=== PATIENT | female | born 2000 | race Asian ===

== ENCOUNTER 2021-07-25 14:13 | Emergency (ER) | payer BC, OTHER ==
[~2021-07-25] VITALS: Ht 147.3 cm; Wt 48.8 kg
--- NOTE | 2021-07-25 15:46 | PHYS DOC ---
Past Medical History Past Medical History: No Pertinent History ([facility],ELIZABETH Love SENIOR PAYROLL SPECIALIST) Past Surgical History: No Surgical History [facility] SEN[facility] PAYROLL SPECIAL[facility]) Smoking Status: Current Some Day Smoker Alcohol Use: Occasionally Drug Use: None ([facility] SENIOR PAYROLL SPECIALIST) General Adult EDM: Chief Complaint: FEVER HPI: HPI: Patient is a 20 year old female who presents with 1 day of sore throat, headache, fever, body aches. She states she was around her cousin he was ill but tested negative for Covid. She is a history of smoking but takes no other meds. She is not vaccinated for Covid. She last took Tylenol at 10:00 this morning. Denies urinary symptoms, cough, shortness of air, nasal congestion, loss of taste or smell, dizziness, chest pain, abdominal pain, nausea, vomiting, diarrhea. (ELIZABETH COBOS SENIOR PAYROLL SPECIALIST) Review of Systems: Review of Systems: Constitutional: + fever or +chills. [] Eyes: Denies change in visual acuity. [] HENT: Denies nasal congestion or +sore throat. [] Respiratory: Denies cough or shortness of breath. [] Cardiovascular: Denies chest pain or edema. [] GI: Denies abdominal pain, nausea, vomiting, bloody stools or diarrhea. [] : Denies dysuria. [] Musculoskeletal: Denies back pain or joint pain. + Generalized body aches [] Integument: Denies rash. [] Neurologic: + headache, denies focal weakness or sensory changes. [] Endocrine: Denies polyuria or polydipsia. [] Lymphatic: Denies swollen glands. [] Psychiatric: Denies depression or anxiety. [] ([facility],ELIZABETH M SENIOR PAYROLL SPECIALIST) Heart Score: C/O Chest Pain: No ([facility] SENIOR PAYROLL SPECIALIST) Allergies: Allergies: Allergies Coded Allergies Type Severity Reaction Last Updated Verified No Known Drug Allergies 07/13/14 No ([facility] SENIOR PAYROLL SPECIALIST) Physical Exam: PE: Constitutional: Well developed, well nourished, no acute distress, non-toxic appearance. Febrile [] HENT: Normocephalic, atraumatic, bilateral external ears normal, oropharynx moist, no oral exudates, nose normal. [] Eyes: PERRLA, EOMI, conjunctiva normal, no discharge. [] Neck: Normal range of motion, no tenderness, supple, no stridor. [] Cardiovascular:Heart rate regular tachycardia rhythm, no murmur [] Lungs & Thorax: Bilateral breath sounds clear to auscultation [] Abdomen: Bowel sounds normal, soft, no tenderness, no masses, no pulsatile masses. [] Skin: Warm, dry, no erythema, no rash. [] Back: No tenderness, no CVA tenderness. [] Extremities: No tenderness, no cyanosis, no clubbing, ROM intact, no edema. [] Neurologic: Alert and oriented X 3, normal motor function, normal sensory function, no focal deficits noted. [] Psychologic: Affect normal, judgement normal, mood normal. [] (ELIZABETH COBOS APRN) Current Patient Data: Vital Signs: Vital Signs Date Time Temp Pulse Resp B/P (MAP) Pulse Ox O2 Delivery O2 Flow Rate FiO2 07/25/21 14:46 103.2 110 20 94/39 (57) 95 Room Air 103.2 (ELIZABETH COBOS APRN) EKG: EKG: [] (ELIZABETH COBOS APRN) Radiology/Procedures: Radiology/Procedures: [] Impression: [facility] [address] [place] [address] IMAGING REPORT Signed PATIENT: CLAIRE ACKERMAN ACCOUNT: [id number] : 2000 LOCATION: ER AGE: 20 SEX: F EXAM STATUS: REG ER ORD. PHYSICIAN: ELIZABETH COBOS APRN REASON: SOA PROCEDURE: PORTABLE CHEST 1V EXAMINATION: Chest radiograph. VIEWS: 1 COMPARISON: None INDICATION:20 years, Female, shortness of breath. FINDINGS: Normal cardiomediastinal silhouette. Patchy airspace opacity in the right lung base. No pleural effusion or pneumothorax. No acute osseous process. IMPRESSION: Patchy airspace opacity in the right lung base, differential includes atelectatic changes versus pneumonia. Electronically signed by: Anjali Guillen MD (07/25/2021 5:06 PM) [facility] DICTATED and SIGNED BY: ANJALI GUILLEN MD DATE: 07/25/21 [id number] (ELIZABETH COBOS APRN) Course & Med Decision Making: Course & Med Decision Making Pertinent Labs and Imaging studies reviewed. (See chart for details) COVID-19 CRITERIA: The patient was evaluated during the global COVID-19 pandemic, and that diagnosis was suspected/considered upon their initial presentation. Their evaluation, treatment and testing was consistent with current guidelines for patients who present with complaints or symptoms that may be related to COVID-19. See HPI. Skin pink warm and dry. Febrile at 103. Tachycardia. Lungs are clear all station all lobes. Throat is reddened but there is no swelling or exudates. No CVA tenderness. Alert and oriented x4. Speaks in full clear sentences. Patient is stable and in no respiratory distress. X-ray showing atelectasis versus pneumonia. Her lungs sound clear upon auscultation. [] (ELIZABETH COBOS APRN) Course & Med Decision Making COVID Swab was POSITIVE I have reviewed the PA/CLAM DREDGER's note and plan of care. I was available for consultation as needed during the patient's visit in the emergency department. (RIZWAN ORTIZ MD) Dragon Disclaimer: Dragon Disclaimer: This electronic medical record was generated, in whole or in part, using a voice recognition dictation system. (ELIZABETH COBOS APRN) COVID-19 Patient Risks: Age 65 or older: No Sign of co-morbidity: Yes Exp to person + for COVID: No Exp to PUI: Yes Travel from affected area: No Lower respiratory symptoms: No Fever: Yes Other: Yes (bodyaches, sore throat) (ELIZABETH COBOS APRN) PPE Use: Full PPE with N95 mask or PAPR: Yes (ELIZABETH COBOS APRN) Departure Departure Impression: Primary Impression: COVID-19 Disposition: 01 HOME / SELF CARE / HOMELESS Condition: STABLE Referrals: NO PCP (PCP) Patient Instructions: Fever, Adult Additional Instructions: Drink plenty of water. Alternate between Tylenol and ibuprofen. Return to the emergency room for severe shortness of breath, cannot keep down fluids or severe chest pain. Quarantine. You have been tested for or diagnosed with COVID-19. It is an infection caused by a new type of coronavirus. COVID-19 will cause cold-like or mild flu symptoms in most. It can cause more severe symptoms like problems breathing in some. There is no treatment for COVID-19. The body will clear the infection over time. Self-care will help to ease discomfort. Steps to Take: Self-Care Rest as needed. Healthy habits may help you feel better. Steps include: Choose healthy foods including fruits and vegetables. Drink water throughout the day. Get plenty of sleep each night. If you smoke, try to quit. It may ease breathing. Avoid alcohol. Keep Others Healthy The virus can spread to others. Droplets are released every time you sneeze or cough. The droplets can get into the mouth, nose, or eyes of people near you and lead to infection. To lower the chances of spreading COVID-19 to others: Stay at home until your doctor has said it is safe to leave. If you tested positive this will mean staying isolated until both of the following are true: At least 7 days have passed since the start of illness. You are free of fever for at least 72 hours without the use of medicine. During this time: - Avoid public areas, events, or transportation. Do not return to work or school until your doctor has said it is safe to do so. - Call ahead if you need to go to a medical center. Let them know you may have COVID-19. It will help them guide you where to go. They may also ask you to wear a facemask when you come to the office. - If you call for emergency medical services, let them know you may have COVID- 19. While at home: - Try to avoid close contact with others. Stay about 6 feet away. - If possible, spend most of your time in a separate room from others. - Use a face mask if you will be in close contact with others such as sharing a room or vehicle. - Have someone wipe down common surfaces in the home. Use household regional safety manager every day on areas like doorknobs, counters, or sinks. - Cough or sneeze into a tissue. Throw the tissue away right after use. If a tissue is not available, cough or sneeze into your elbow. - Wash your hands often. Wash them after sneezing or coughing. Use soap and water and wash for at least 20 seconds. Alcohol based hand screen cleaner can be used if soap and water is not available. - Do not prepare food for others. Avoid sharing personal items like forks, spoons, or toothbrushes. - Avoid close contact with pets while you are sick. There is no evidence of the virus passing to pets. This is a safety step until more is known about this virus. Isolation can be frustrating. Social interaction can help. Keep in touch with friends and family through phone and tech options. You can still interact with others in your home, just keep a safe distance of about 6 feet. Follow-up: Your doctors office will check in with you to see if there are any changes in your health. You may be asked to keep track of symptoms to share with them. They will also let you know when you are clear to be in public again. Problems to Look Out For: Contact your doctor if your recovery is not going as you expect. Get emergency care if you have problems such as: - Trouble breathing - Nonstop chest pain or pressure - Changes in awareness, confusion, or problems waking - Lips or face have bluish color - Worsening of symptoms If you think you have an emergency, call for emergency medical services right away. As taken from [facility] Albuterol Sulfate (PROAIR HFA INHALER) 8.5 Gm Hfa.aer.ad 1 PUFF INH PRN Q6HRS PRN for SHORTNESS OF BREATH, #1 EACH 0 Refills Prov: ELIZABETH COBOS APRN 07/25/21 ELIZABETH COBOS APRN Jul 25, 2021 15:46 RIZWAN ORTIZ MD Jul 27, 2021 07:02
[2021-07-25] MEDS ORDERED: ACETAMINOPHEN 500 MG TABLET PO ONE (16:00)
[2021-07-25] MEDS ORDERED: IV NORMAL SALINE 1000ML BAG 1,000 ML IV ONE (16:00)
[2021-07-25 16:27] LABS: BASO % 0 % (0-3); EOS % 0 % (0-3); HEMATOCRIT 36.5 % (36.0-47.0); HEMOGLOBIN 12.1 g/dL (12.0-15.5); LYMPH # 0.6 x10^3/uL (1.0-4.8); LYMPH % 14 % (24-48); MEAN CORPUSCULAR HEMOGLOBIN 26 pg (25-35); MEAN CORPUSCULAR HGB CONC 33 g/dL (31-37); MEAN CORPUSCULAR VOLUME 77 fL (79-100); MONO # 0.4 x10^3/uL (0.0-1.1); MONO % 11 % (0-9); NEUT # 3.1 x10^3/uL (1.8-7.7); NEUT % 75 % (31-73); PLATELET COUNT 247 x10^3/uL (140-400); RED BLOOD COUNT 4.74 x10^6/uL (3.50-5.40); RED CELL DISTRIBUTION WIDTH 14.3 % (11.5-14.5); WHITE BLOOD COUNT 4.1 x10^3/uL (4.0-11.0)
[2021-07-25 16:35] LABS: CALCIUM 8.5 mg/dL (8.5-10.1); CREATININE 0.7 mg/dL (0.6-1.0); GFR 105.6; POTASSIUM 3.6 mmol/L (3.5-5.1)
[2021-07-25 16:40] LABS: ALBUMIN/GLOBULIN RATIO 0.9 (1.0-1.7); TOTAL BILIRUBIN 0.3 mg/dL (0.2-1.0); TOTAL PROTEIN 8.5 g/dL (6.4-8.2)
[2021-07-25 16:45] LABS: INFLUENZA A PATIENT NEGATIVE (NEGATIVE); INFLUENZA B PATIENT NEGATIVE (NEGATIVE)
--- NOTE | 2021-07-25 17:08 | RAD ---
EXAMINATION: Chest radiograph. VIEWS: 1 COMPARISON: None INDICATION:20 years, Female, shortness of breath. FINDINGS: Normal cardiomediastinal silhouette. Patchy airspace opacity in the right lung base. No pleural effus ion or pneumothorax. No acute osseous process. IMPRESSION: Patchy airspace opacity in the right lung base, differential includes atelectatic changes versus pneu monia. Electronically signed by: Gerardo Guillen MD (07/25/2021 5:06 PM) [facility]
[2021-07-25] MEDS ORDERED: ALBU2.5V8 INH (17:16)
[2021-07-25 17:40] VITALS: BP 108/62
== END 2021-07-25 17:40 | disposition home or self-care (01) ==
LOC: ER 14:13
DX: U07.1 COVID-19 (principal); F17.200 Nicotine dependence, unspecified, uncomplicated
CPT/HCPCS: 36415; 71045; 80053; 85025; 87070; 87426; 87804; 87880; 96360; 99284; J7030